=== PATIENT | female | born 1955 | race Caucasian/White ===

== ENCOUNTER → 2016-06-06 | Outpatient (CLI) | payer OTHER | LOC: FIMAGING 11:16 | DX: Z12.31 Encounter for screening mammogram for malignant neoplasm of breast (principal) | CPT/HCPCS: G0202 ==

== ENCOUNTER 2016-06-12 14:25 | Emergency (ER) | payer OTHER ==
[2016-06-12] MEDS ORDERED: ACETAMINOPHEN 325 MG TAB PO ONE (14:39)
[2016-06-12] MEDS ORDERED: NS 1,000 ML IV ONE (14:39)
--- NOTE | 2016-06-12 14:51 | EDPHY ---
H & P Time Seen by Provider: 06/12/16 14:30 HPI/ROS: CHIEF COMPLAINT: Nausea, fever HISTORY OF PRESENT ILLNESS: The patient is a 60 y/o female complaining of intermittent nausea for the last week and a half with fever and abdominal pain onset last night. She has a history that includes insulin-dependent diabetes, uterine cancer, and reactive airways disease. Her nausea became more intense and constant in nature yesterday, but she wasn't able to get an appointment with her PCP or a GI until later next week. Through the evening she developed chills and night sweating. Around 04:00 this morning, almost 11 hours ago, she woke with an associated headache, upper body myalgias, and worsening general malaise. She contacted her PCP again and they referred her to urgent care. Urgent care reported her BP and HR were elevated, so they referred her on to the ED. She now complains of diarrhea and diffuse abdominal pain that is worst in the LLQ and described as "pinching." She denies any cold symptoms including cough. She does have intermittent UTIs for which she cycles on and off Macrobid , but denies new urinary symptoms today. She did get her flu vaccination this season. She has no history of diverticulitis or appendectomy, though she did have a cholecystectomy and hysterectomy due to uterine cancer. REVIEW OF SYSTEMS: Constitutional: +fever, +chills Eyes: No visual changes ENT: No sore throat Respiratory: No cough, no shortness of breath Cardiac: No chest pain Gastrointestinal: +nausea, no vomiting, +abdominal pain Genitourinary: No hematuria, no dysuria Musculoskeletal: No leg pain, baseline swelling, myalgias Skin: No rash Neurological: +headache, no numbness, no weakness Psychiatric: No depression Past Medical/Surgical History: PMH: 1. Diabetes, insulin-dependent 2. GORDO on CPAP 3. Reactive airways disease 4. Gout 5. Uterine cancer 6. Chronic lower extremity edema 7. GERD 8. History of HSV-1 9. Hypothyroidism 10. Depression PSH: 1. Hysterectomy 2. Cholecystectomy 3. Neck fusion Prior medical records reviewed including admission 09/05/15 for back pain and chest pain. Social History: Lives in [place]. Nonsmoker. Rare alcohol use. Smoking Status: Never smoked Physical Exam: General Appearance: Alert, non-toxic, no distress. Febrile 39.4C, tachycardic 109 Eyes: Pupils equal and round, no conjunctival pallor or injection ENT, Mouth: Mucous membranes moist Neck: Normal inspection Respiratory: Lungs are clear to auscultation Cardiovascular: Tachycardic regular rate and rhythm Gastrointestinal: Abdomen is soft, LLQ tenderness Neurological: A&O, nonfocal, normal gait Skin: Warm and dry, no rash Extremities: Nontender, no pedal edema Psychiatric: Mood and affect normal Constitutional: Initial Vital Signs Temperature (C) 39.4 C H 06/12/16 14:28 Heart Rate 109 H 06/12/16 14:28 Respiratory Rate 16 06/12/16 14:28 Blood Pressure 116/72 06/12/16 14:28 O2 Sat (%) 92 06/12/16 14:28 O2 Delivery Mode Room Air O2 (L/minute) 2 Allergies/Adverse Reactions: erythromycin base [Erythromycin Base] Allergy (Verified 06/12/16 14:28) latex Allergy (Verified 06/12/16 14:28) levofloxacin [From Levaquin] Allergy (Verified 06/12/16 14:28) Home Medications: Medication Instructions Recorded Albuterol [Proventil Neb] 3 ml IH PRN PRN 03/10/14 Allopurinol [Allopurinol 300 MG 300 mg PO HS 03/10/14 (RX)] Aspirin EC [Aspirin EC 81 mg (*)] 81 mg PO HS 03/10/14 Citalopram [CeleXA 20 MG] 20 mg PO HS 03/10/14 Desloratadine [Clarinex] 5 mg PO DAILY 03/10/14 EPINEPHrine [Epipen 0.3 MG] 0.3 mg IM ONCE PRN 03/10/14 Esomeprazole Mag Trihydrate 40 mg PO BID 03/10/14 [Nexium] Fluticasone/Salmeterol [Advair Hfa 2 puffs IH BID 03/10/14 115-21 Mcg Inhaler] Herbals/Supplements -Info Only 1 ea PO AD 03/10/14 Insulin Aspart [novoLOG] 4 - 20 unit SC TIDMEAL PRN 03/10/14 Levothyroxine [Synthroid 25 mcg 25 mcg PO DAILY06 03/10/14 (*)] Xyzal 5mg Tablet 5 mg PO HS 03/10/14 clonazePAM [Klonopin (*)] 0.5 mg PO BID PRN 03/10/14 Albuterol [Proventil Inhaler HFA 2 puffs IH PRN PRN 09/05/15 (*)] Azelastine [Astelin] 1 sprays EACHNARE DAILY 09/05/15 Cetirizine [ZyrTEC 10 mg (*)] 10 mg PO DAILY PRN 09/05/15 Cholecalciferol Vit D3 [Vitamin D3 1,000 units PO DAILY 09/05/15 (*)] Dulaglutide [Trulicity] 1.5 mg SQ FR 09/05/15 Furosemide [Lasix 40 MG (*)] 40 mg PO DAILY 09/05/15 Insulin Pump, Patient Own 1 ea MISC AD 09/05/15 Levalbuterol Inhaler [Xopenex Hfa 1 puffs IH PRN PRN 09/05/15 Inhaler (*)] Lisinopril [Zestril 5 mg (*)] 5 mg PO HS 09/05/15 Phenazopyridine HCl 200 mg PO DAILY PRN 09/05/15 [Phenazopyridine] Simvastatin [Zocor] 5 mg PO HS 09/05/15 metFORMIN HCL [Metformin HCl ER] 1,000 mg PO BID 09/05/15 Acetaminophen [Tylenol 325mg (*)] 650 mg PO Q6 PRN #0 tab 09/07/15 Cyclobenzaprine [Flexeril 10 MG 10 mg PO TID PRN #30 tab 09/07/15 (*)] Lidocaine 5% [Lidoderm 5% Patch 1 ea TD DAILY #30 patch 09/07/15 (*)] Naproxen Sodium [Aleve 220 MG (*)] 220 mg PO Q6 PRN #80 tab 09/07/15 Patch Removal 1 ea TD DAILY21 #0 patch 09/07/15 Cefdinir [Omnicef (*)] 300 mg PO BID #20 cap 06/12/16 Ondansetron Odt [Zofran Odt 4 mg 4 mg PO Q4 PRN #6 tab 06/12/16 (*)] Medical Decision Making - Diagnostics Imaging Results: CXR independently reviewed by me reveals NAD CT abd/pelvis read by the radiologist reveals NAD, no diverticulitis. Imaging: Discussed imaging studies w/ scallop dredger Radiologist ED Course/Re-evaluation: This is a 60 y/o female with multiple comorbidities including diabetes and uterine cancer who presents with a one and a half week history of intermittent nausea and new onset fever and chills over the last 24 hours. She additionally complains of diffuse abdominal pain with diarrhea and has LLQ abdominal tenderness on exam. She is mildly tachycardic under 110 and febrile at 39.4C, but generally well-appearing. Meets SIRS criteria. Plan for IV, UA, symptom management, and chest x-ray to rule out pneumonia. Due to her extensive medical history and LLQ tenderness, I recommended abdominal CT to rule out diverticulitis or other abdominal process. 1L IV NS, 4mg IV Zofran, and 650mg PO Tylenol administered. Chest x-ray shows no acute infiltrate. Abdomen CT shows no acute process. UA shows UTI. I discussed work up with the patient. She will receive dose of 1gm IV Rocephin here and be discharged home with script for Omnicef. Standard UTI instructions and return precautions given. She is comfortable with this plan. Differential Diagnosis: includes though not limited to pneumonia, diverticulitis, influenza, cellulitis. - Data Points Laboratory Results: Laboratory Results 06/12/16 14:50 06/12/16 14:50 Microbiology Results: MICROBIOLOGY 06/12/16 14:45 Urine,Clean Catch Urine Culture - Final Four [place] Types Medications Given: Discontinued Medications Acetaminophen (Tylenol) 650 mg PO EDNOW ONE Stop: 06/12/16 14:40 Last Admin: 06/12/16 15:19 Dose: 650 mg Sodium Chloride (Ns) 1,000 mls @ 0 mls/hr IV ONCE ONE PRN Reason: Wide Open Stop: 06/12/16 14:40 Last Admin: 06/12/16 14:40 Dose: 1,000 mls Ceftriaxone Sodium/Dextrose (Rocephin 1 Gm (Premix)) 50 mls @ 100 mls/hr IV EDNOW ONE PRN Reason: Protocol Stop: 06/12/16 17:49 Last Admin: 06/12/16 17:35 Dose: 50 mls Ondansetron HCl (Zofran) 4 mg IVP EDNOW ONE Stop: 06/12/16 15:01 Last Admin: 06/12/16 15:15 Dose: 4 mg Departure - Departure Disposition: Home, Routine, Self-Care Clinical Impression: UTI (urinary tract infection) Qualifiers: Urinary tract infection type: acute cystitis Hematuria presence: without hematuria Qualified Code(s): N30.00 - Acute cystitis without hematuria Condition: Good Instructions: Ondansetron (By mouth), Cefdinir (By mouth), Urinary Tract Infection in Women (ED) Additional Instructions: 1. Take Omnicef as prescribed for your UTI. Be sure to complete the entire prescription even if you feel improved. 2. Use Zofran as prescribed when needed for nausea or vomiting. 3. Use Tylenol or ibuprofen as directed below if needed for pain. 4. Call ED for urine culture results in 2 days. [phone]. 5. Follow up with your primary care provider for symptoms not improved over the next 3-4 days. 6. Return to the ED for uncontrollable vomiting, severe abdominal pain, or other worsening of condition. Adult Pain & Fever Control: We recommend Acetaminophen (Tylenol) and Ibuprofen (Motrin,Advil) for pain and fever control. When fever is high or pain severe, both drugs can be used at the same time, but at different intervals. Please note the time differences. Your dose is: Acetaminophen 500mg every 4 to 6 hours Ibuprofen 600mg every 6-8 hours with food Note: do not take Acetaminophen with Hydrocodone (Vicodin, Lortab) or Oxycodone (Percocet). These medications also contain Acetaminophen. No more than 3000mg of Acetaminophen should be taken in 24 hours (for an adult). Referrals: Soniya Alvarez MD [Primary Care Provider] - As per Instructions Prescriptions: Cefdinir [Omnicef (*)] 300 mg PO BID #20 cap Ondansetron Odt [Zofran Odt 4 mg (*)] 4 mg PO Q4 PRN #6 tab PRN Reason: Nausea Report Scribed for: Yamile Subramanian Report Scribed by: Shirley Sanchez Date of Report: 06/12/16 Time of Report: 14:52 Physician Review and Approval Statement: 06/12/16 14:52 Portions of this note were transcribed by a medical orderly. I personally performed a history, physical exam, medical decision making, and confirmed accuracy of information the transcribed note.
[2016-06-12] MEDS ORDERED: ONDANSETRON 4 MG/2 ML VIAL IVP ONE (15:00)
[2016-06-12 15:05] LABS: COLOR YELLOW; LEUKOCYTE ESTERASE,URINE TRACE (NEGATIVE); NITRITE,URINE NEGATIVE (NEGATIVE)
[2016-06-12 15:14] LABS: % IMMATURE GRANULYOCYTES 0.7 % (0.0-1.1); ABSOLUTE IMMATURE GRANULOCYTES 0.14 10^3/uL (0.00-0.10); ADD DIFF? NO; ADD MORPH? NO; ADD SCAN? NO; ATYPICAL LYMPHOCYTE FLAG 0 (0-99); FRAGMENT RBC FLAG 0 (0-99); HEMATOCRIT 37.8 % (38.0-47.0); HEMOGLOBIN 12.9 g/dL (12.6-16.3); LEFT SHIFT FLG 10 (0-99); LIPEMIA HEMOLYSIS FLAG 90 (0-99); MEAN CELL HEMOGLOBIN 29.3 pg (27.9-34.1); MEAN CELL HEMOGLOBIN CONCENTR. 34.1 g/dL (32.4-36.7); MEAN CELL VOLUME 85.9 fL (81.5-99.8); MEAN PLATELET VOLUME 8.9 fL (8.7-11.7); PLATELET CLUMPS FLAG 10 (0-99); PLATELET COUNT 340 10^3/uL (150-400)
[2016-06-12 15:29] LABS: BACTERIA TRACE /hpf (NONE SEEN); MUCUS TRACE /lpf (NONE-1+)
[2016-06-12 15:34] LABS: ANION GAP 14 mEq/L (8-16); CALCIUM 9.2 mg/dL (8.5-10.4); CARBON DIOXIDE 26 mEq/l (22-31); CHLORIDE 95 mEq/L (97-110); CREATININE 0.7 mg/dL (0.6-1.0); GLOMERULAR FILTRATION RATE > 60; GLUCOSE 187 mg/dL (70-100); POTASSIUM 3.7 mEq/L (3.5-5.2); SODIUM 135 mEq/L (134-144)
[2016-06-12] MEDS ORDERED: IOPAMIDOL (ISOVUE-300) 100 ML BTL IV ONE (15:44)
[2016-06-12 15:56] LABS: LACGHOST ORDER
[2016-06-12 16:15] VITALS: RESP 18
[2016-06-12] MEDS ORDERED: CEFTRIAXONE 1 GM/DEXTROSE/50 ML BAG IV ONE (17:33)
[2016-06-12 18:26] VITALS: BP 111/65; PULSE 92; TEMP 99.5; O2SAT 95
== END 2016-06-12 18:26 | disposition home or self-care (01) ==
DX: N30.00 Acute cystitis without hematuria (principal); B96.89 Other specified bacterial agents as the cause of diseases classified elsewhere; E11.9 Type 2 diabetes mellitus without complications; J45.909 Unspecified asthma, uncomplicated; Z79.4 Long term (current) use of insulin; Z79.82 Long term (current) use of aspirin; Z79.84 Long term (current) use of oral hypoglycemic drugs; Z85.42 Personal history of malignant neoplasm of other parts of uterus; Z90.710 Acquired absence of both cervix and uterus; Z90.49 Acquired absence of other specified parts of digestive tract; Z91.040 Latex allergy status
CPT/HCPCS: 82947-QW; 96365; J0696; J2405; Q9967

== ENCOUNTER → 2017-12-07 | Outpatient (CLI) | payer OTHER | LOC: FIMAGING 15:06 | PROVIDERS: ATTEND Internal Medicine | DX: Z12.31 Encounter for screening mammogram for malignant neoplasm of breast (principal) ==

== ENCOUNTER → 2018-06-02 | Outpatient (CLI) | payer OTHER ==
[~2018-06-02] MED LIST: IOPAMIDOL (ISOVUE 370) 100 ML BTL IV ONE; METOPROLOL TARTRATE 5 MG/5 ML INJ ONE
== END ==
LOC: FIMAGING 08:08
DX: R07.89 Other chest pain (principal)
CPT/HCPCS: Q9967